=== PATIENT | female | born 2000 | race Two or more races ===

== ENCOUNTER 2018-02-03 08:14 | Outpatient (CLI) | payer OTHER ==
[~2018-02-03 08:14] MED LIST: ACETAMINOPHEN 325 MG TABLET PO PRN; DIPHENHYDRAMINE HCL 50 MG/ML VIAL IV PRN; IRON DEXTRAN COMPLEX 25 MG in SYRINGE, DISPOSABLE, 1 EACH IV PRN; IRON DEXTRAN COMPLEX 975 MG in NORMAL SALINE 1000 ML 1,000 ML IV PRN; NORMAL SALINE 250 ML IV PRN
[2018-02-03] MEDS ORDERED: DIPHENHYDRAMINE HCL 50 MG/ML VIAL IV PRN (08:40)
[2018-02-03 09:06] VITALS: BP 102/50
== END 2018-02-03 14:00 | disposition home or self-care (01) ==
LOC: II 08:14 → 5TH 08:18 → II 14:00
PROVIDERS: ATTEND Internal Medicine
PROC: 3E033GC Introduction of Other Therapeutic Substance into Peripheral Vein, Percutaneous Approach (ICD-10-PCS; principal; 2018-02-03)
DX: D50.8 Other iron deficiency anemias (principal)
CPT/HCPCS: 96365; 96366; 96374; 96375; J1200; J1750; J7030; J3490